=== PATIENT | female | born 1940 | race Caucasian/White ===

== ENCOUNTER 2016-09-08 10:10 | Emergency (ER) | payer MEDICARE, OTHER ==
[2016-09-08] MEDS ORDERED: Propofol 200 MG/20 ML SDV ONE (11:41)
[2016-09-08 11:56] VITALS: BP 104/54
--- NOTE | 2016-09-08 17:50 | EDM.PDOC ---
[id number] 4d HIP PAIN ON RIGHT Time Seen by Provider: 09/08/16 11:30 Source: Reports: Patient, Family History Limitations: Reports: No limitations - History of Present Illness INITIAL COMMENTS - FREE TEXT/NARRATIVE: pt fell this am and she thought she dislocated her hip. Occurred When: just prior to arrival Occurred Where: home Method of Injury: fall Severity: moderate Pain/Injury Location: Reports: lower extremity, right Consciousness: Reports: no loss of consciousness Associated Symptoms: Reports: denies other symptoms Allergies/ADRs: Allergies niacin Allergy (Verified 09/08/16 10:21) Rash atorvastatin Adverse Reaction (Verified 09/08/16 10:21) Muscle Aches simvastatin Adverse Reaction (Verified 09/08/16 10:21) Joint Pain Home Medications: Ambulatory Orders Albuterol Sulfate [Proair Hfa] 2 puff IH Q4HR PRN 02/05/13 [Confirmed 05/11/15] Aspirin [Aspirin EC] 81 mg PO DAILY 02/05/13 [Confirmed 05/11/15] Benzonatate 100 mg PO ASDIRECTED PRN 02/05/13 [Confirmed 05/11/15] Carvedilol 12.5 mg PO BID 02/05/13 [Confirmed 05/11/15] Isosorbide Mononitrate [Imdur] 60 mg PO BID 02/05/13 [Confirmed 05/11/15] Lansoprazole [Prevacid] 30 mg PO DAILY 02/05/13 [Confirmed 05/11/15] Oxybutynin Chloride [Ditropan Xl] 5 mg PO TID 02/05/13 [Confirmed 05/11/15] Spironolactone 75 mg PO BID 02/05/13 [Confirmed 05/11/15] Tiotropium [Spiriva HandiHaler] 18 mcg INH DAILY 02/05/13 [Confirmed 05/11/15] Furosemide [Lasix] 40 mg PO DAILY #30 tab 03/01/13 [Confirmed 05/11/15] Fexofenadine [Paige] 180 mg PO DAILY 10/03/13 [Confirmed 05/11/15] Multivitamin [Multivitamins] 1 each PO DAILY 10/19/13 [Confirmed 05/11/15] DULoxetine [Cymbalta] 30 mg PO BEDTIME 02/03/14 [Confirmed 05/11/15] Rosuvastatin [Crestor] 5 mg PO .QMWF 02/03/14 [Confirmed 05/11/15] Acetaminop/Dichlphn/Isomethept [Midrin 325-100-65 MG] 1 cap PO Q4H PRN 05/10/15 [Confirmed 05/11/15] Benzonatate 100 mg PO TID 05/10/15 [Confirmed 05/11/15] Cyanocobalamin (Vitamin B-12) [B-12] 1,000 mcg PO BID 05/10/15 [Confirmed ] Fluticasone Propionate [Flonase] 2 sprays GALINDO DAILY 05/10/15 [Confirmed 05/11/15 ] Methocarbamol [Robaxin] 500 mg PO BID PRN 05/10/15 [Confirmed 05/11/15] Nitroglycerin [Nitrostat] 0.4 mg SL ASDIRECTED PRN 05/10/15 [Confirmed 05/11/15] Pregabalin [Lyrica] 50 mg PO BID 05/10/15 [Confirmed 05/11/15] amLODIPine Besylate [Amlodipine Besylate] 10 mg PO DAILY 05/10/15 [Confirmed 03/16] Past Medical History HEENT History: Reports: Cataract, Hard of hearing Cardiovascular History: Reports: Angina, Blood clots/VTE/DVT, CAD, Heart Failure , [place], Stents Other Cardiovascular History: [place] 09/2011, Respiratory History: Reports: Asthma, COPD, Sleep apnea Gastrointestinal History: Reports: G[employer]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: Musculoskeletal History: Reports: Back pain, chronic, Osteoarthritis Neurological History: Reports: Migraines Hematologic History: Reports: Anemia - Past Surgical History HEENT Surgical History: Reports: Adenoidectomy, Tonsillectomy Cardiovascular Surgical History: Reports: Coronary artery stent GI Surgical History: Reports: Colonoscopy Female Surgical History: Reports: Tubal ligation Neurological Surgical History: Reports: Laminectomy, Lumbar spine, Spinal fusion Musculoskeletal Surgical History: Reports: Hip replacement, Knee replacement, Other (see below) Other Musculoskeletal Surgeries/Procedures:: ankle repair Oncologic Surgical History: Reports: Biopsy of breast, Lumpectomy Social & Family History - Tobacco Use Smoking Status *Q: Former Smoker Years of Tobacco use: 6 Used Tobacco, but Quit: Yes Month Tobacco Last Used: 28 years Second Hand Smoke Exposure: No - Alcohol Use Days Per Week of Alcohol Use: 0 Number of Drinks Per Day: 1 Total Drinks Per Week: 0 - Recreational Drug Use Recreational Drug Use: No Review of Systems - Review of Systems Review Of Systems: See Below Constitutional: Reports: no symptoms Eyes: Reports: no symptoms Ears: Reports: no symptoms Nose: Reports: no symptoms Mouth/Throat: Reports: no symptoms Respiratory: Reports: No Symptoms Cardiovascular: Reports: no symptoms GI/Abdominal: Reports: No symptoms Genitourinary: Reports: no symptoms Musculoskeletal: Reports: other ( pain in left hip) Skin: Reports: no symptoms Trauma Exam - Physical Exam Exam: See Below Text/Narrative:: Pt arrived with pain in left hip. She was externally rotated after a fall. Exam Limited By: No limitations General Appearance: Reports: alert, moderate distress Head: Reports: atraumatic Ears: Reports: normal TMs Nose: Reports: normal inspection Throat/Mouth: Reports: Normal inspection Neck: Reports: non-tender Respiratory Exam: Reports: no respiratory distress Cardiovascular: Reports: regular rate, rhythm GI/Abdominal: Reports: soft, non tender Extremities: Reports: other ( pt has a shortened and externally rotated rt hip. This was very painful. She had a total hip done in October on the rt. ) Course - Vital Signs Last Recorded V/S: Last Vital Signs Temp Pulse 58 L 09/08/16 11:55 Resp 13 09/08/16 11:55 BP 104/54 L 09/08/16 11:55 Pulse Ox 94 L 09/08/16 11:55 - Orders/Labs/Meds Meds: Medications Discontinued Medications Generic Name Dose Route Start Last Admin Trade Name Myron PRN Reason Stop Dose Admin Propofol Confirm 09/08/16 11:41 Diprivan 20 Ml Administered 09/08/16 11:42 Dose 200 mg .ROUTE .STK-MED ONE - Re-Assessments/Exams Free Text/Narrative Re-Assessment/Exam: 09/08/16 17:53 xray showed a dislocated rt hip-- total hip. . anethesia was called and she was sedated. With out difficulty the hip was pulled back into plac. There was a feeling that this was almost too easy to put in. Departure - Departure Time of Disposition: 13:45 Disposition: Home, Self-Care 01 Condition: fair Clinical Impression: Dislocation of right hip, H/O total hip arthroplasty Instructions: Closed Reduction for Artificial Hip Dislocation, Care After Referrals: PCP,None [Primary Care Provider] - Forms: ED Department Discharge Care Plan Goals: low activity, do not go to cardiac rehab this week, let your orthopeditis know about the dislocation
--- NOTE | 2016-09-09 09:20 | CR ---
Hip Min 1V Rt INDICATION: post reduction FINDINGS: Interval reduction of the right total hip arthroplasty.
--- NOTE | 2016-09-09 09:21 | CR ---
Hip Min 2V or 3V Rt INDICATION: possible dislocated total hip. FINDINGS: Superior dislocation of the right total hip arthroplasty. The femoral component is located superiorly and anteriorly approximately 6 cm from the acetabular component.
== END 2016-09-08 13:41 | disposition home or self-care (01) ==
LOC: JP.ED 10:10
DX: S73.004A Unspecified dislocation of right hip, initial encounter (principal); W19.XXXA Unspecified fall, initial encounter; Z88.8 Allergy status to other drugs, medicaments and biological substances; Z79.82 Long term (current) use of aspirin; Z79.899 Other long term (current) drug therapy; Z86.718 Personal history of other venous thrombosis and embolism; I25.10 Atherosclerotic heart disease of native coronary artery without angina pectoris; I50.9 Heart failure, unspecified; I25.2 Old myocardial infarction; Z95.5 Presence of coronary angioplasty implant and graft; J44.9 Chronic obstructive pulmonary disease, unspecified; J45.909 Unspecified asthma, uncomplicated; K21.9 Gastro-esophageal reflux disease without esophagitis; M19.90 Unspecified osteoarthritis, unspecified site; D64.9 Anemia, unspecified; H91.90 Unspecified hearing loss, unspecified ear; Z96.649 Presence of unspecified artificial hip joint; Z96.659 Presence of unspecified artificial knee joint; Z87.891 Personal history of nicotine dependence
CPT/HCPCS: 27266; 73501; 73502; 99283; J2704; 27265